=== PATIENT | male | born 1990 | race African-American/Black ===

== ENCOUNTER 2022-03-27 16:09 | Emergency (ER) | payer OTHER ==
[~2022-03-27] VITALS: Ht 170.2 cm; Wt 79.4 kg
[2022-03-27] MEDS ORDERED: TAMS0.4C PO (19:50)
[2022-03-27] MEDS ORDERED: KETO10TA2 PO (19:50)
[2022-03-27] MEDS ORDERED: CIPRO500 MG PO (19:50)
== END 2022-03-27 19:55 | disposition home or self-care (01) ==
LOC: ER 16:09
DX: N20.0 Calculus of kidney (principal)